=== PATIENT | male | born 1990 | race African-American/Black ===

== ENCOUNTER → 2020-01-29 | Emergency (ER) | payer BC ==
[~2020-01-29] VITALS: Ht 167.6 cm; Wt 100.0 kg
[2020-01-29 17:10] VITALS: BP 136/93; Ht 167.6 cm; Wt 100.0 kg
[2020-01-29 17:37] LABS: CALC OSMOLALITY 278 mosm/kg (275-300); CALCIUM 9.1 mg/dL (8.5-10.1); CHLORIDE - SERUM 104 mmol/L (98-107); CREATININE - SERUM 1.2 mg/dL (0.6-1.3); GLUCOSE 105 mg/dL (74-106); HEMATOCRIT 44.1 % (42.0-54.0); HEMOGLOBIN 14.3 g/dL (13.5-17.5); MCH 28.1 pg (26.0-34.0); MCHC 32.4 g/dL (31.0-37.0); MCV 86.8 fL (80.0-100.0); MEAN PLATELET VOLUME 9.9 fL (7.4-10.4); PLATELET COUNT 290 10x3/uL (130-400); RBC 5.08 10x6/uL (4.20-6.10); RDW 12.8 % (11.5-14.5); SODIUM 140 mmol/L (136-145); UREA NITROGEN 12 mg/dL (7-18); WBC 4.6 10x3/uL (4.8-10.8); eGFR NON AFRICAN AMERICAN 75 mL/min (90-120)
[2020-01-29 17:54] LABS: ALBUMIN 4.4 g/dL (3.4-5.0); ALKALINE PHOSPHATASE 52 U/L (30-120); ALT (SGPT) 45 U/L (10-68); CKMB 1.1 U/L (0.0-3.6); CREATINE KINASE 264 UL (21-232); PROTEIN - SERUM 8.1 g/dL (6.4-8.2)
[2020-01-29 17:56] LABS: TROPONIN-I < 0.017 ng/mL (0.000-0.060)
[2020-01-29 18:13] LABS: EOSINOPHILS 2 % (0-7); LYMPHOCYTES 59 % (15-50); MONOCYTES 2 % (2-11); NEUTROPHILS 36 % (40-80)
[2020-01-29 18:14] LABS: PLATELET ESTIMATE NORMAL
== END | disposition home or self-care (01) ==
LOC: D.ER 16:55
PROVIDERS: Family Medicine
DX: M79.18 Myalgia, other site (principal); R07.9 Chest pain, unspecified